=== PATIENT | female | born 1995 | race Caucasian/White ===

== ENCOUNTER → 2024-09-04 | Outpatient (CLI) | payer OTHER ==
--- NOTE | 2024-09-04 10:46 | XR ---
EXAMINATION TYPE: XR chest 2V DATE OF EXAM: 09/04/2024 CLINICAL INDICATION: Female, 29 years old with history of S23.3XXA SPRAIN OF LIGAMENTS OF THORACIC S2 9.002A, pain after injury. TECHNIQUE: Frontal and lateral views of the chest are obtained. COMPARISON: None FINDINGS: There is no focal air space opacity, pleural effusion, or pneumothorax seen. The cardiac silhouette size is within normal limits. The osseous structures are intact. IMPRESSION: No acute cardiopulmonary process. [facility], , 09/04/2024 10:44 AM
--- NOTE | 2024-09-04 10:47 | XR ---
EXAMINATION TYPE: XR thoracic spine complete DATE OF EXAM: 09/04/2024 CLINICAL INDICATION: Female, 29 years old with history of S23.3XXA SPRAIN OF LIGAMENTS OF THORACIC S2 9.002A, pain TECHNIQUE: Frontal and lateral views of thoracic spine are obtained. COMPARISON: None. FINDINGS: Thoracic spine show satisfactory alignment without evidence of acute fracture or dislocatio n. Vertebral body heights and disc space heights are preserved. Visualized ribs are intact bilateral ly. IMPRESSION: No acute fracture or dislocation is seen in the thoracic spine. [facility], , 09/04/2024 10:44 AM
== END | disposition home or self-care (01) ==
LOC: RADXRMAIN 10:25
PROVIDERS: ATTEND Emergency Medicine
DX: S23.3XXA Sprain of ligaments of thoracic spine, initial encounter (principal); S29.002A Unspecified injury of muscle and tendon of back wall of thorax, initial encounter
CPT/HCPCS: 71046; 72072